=== PATIENT | male | born 1955 | race Caucasian/White ===

== ENCOUNTER 2020-10-22 14:53 | Outpatient (REF) | payer BC, SELFPAY | END 2020-10-22 14:54 | disposition home or self-care (01) | LOC: HO.LAB 14:53 | PROVIDERS: PCP Internal Medicine; Visit Provider Surgery | DX: L72.0 Epidermal cyst (principal); L72.3 Sebaceous cyst | CPT/HCPCS: 11403; 88304 ==

== ENCOUNTER → 2020-11-05 14:08 | Outpatient (BNVA) | payer BC, SELFPAY | PROVIDERS: PCP Internal Medicine; Visit Provider Surgery ==

== ENCOUNTER 2020-11-14 08:25 | Outpatient (REF) | payer BC, SELFPAY ==
[2020-11-14 10:03] LABS: MANUAL DIFF FLAG NO
[2020-11-14 10:30] LABS: Basophils Absolute Auto 0.1 X10*3/uL (0.0-0.2); Basophils Percent Auto 1.1 % (0-2); Eosinophils Absolute Auto 0.1 X10*3/uL (0.0-0.4); Eosinophils Percent Auto 1.8 % (0-4); Hematocrit 45.4 % (42-52); Hemoglobin 15.3 g/dl (14.0-18.0); Imm Gran Abs Auto 0.03 X10*3/uL (0.00-0.03); Imm Gran Pct Auto 0.5 % (0.0-0.4); Lymphocytes Absolute Auto 1.9 X10*3/uL (1.2-4.9); Lymphocytes Percent Auto 28.5 % (20-40); Mean Corpuscular HGB Conc 33.7 g/dl (31.0-36.0); Mean Corpuscular Hemoglobin 30.1 pg (27.0-33.0); Mean Corpuscular Volume 89.4 fL (80-98); Mean Platelet Volume 10.4 fL (9.4-12.4); Monocytes Absolute Auto 0.4 X10*3/uL (0.1-1.2); Monocytes Percent Auto 6.6 % (2-11); Neutrophils Percent Auto 61.5 % (45-73); Platelet Count 182 X10*3/uL (160-400); Red Blood Count 5.08 X10*6/uL (4.60-5.80); Red Cell Distribution Width 12.2 % (11.0-16.0); White Blood Count 6.5 X10*3/uL (4.8-10.8)
[2020-11-14 10:32] LABS: Alanine Aminotransferase 23 U/L (0-40); Albumin Level 4.3 g/dL (3.5-5.0); Alkaline Phosphatase 68 U/L (39-117); Anion Gap 13 (12-20); Aspartate Amino Transferase 19 U/L (5-37); Bilirubin Total 0.5 mg/dL (0.0-1.0); Blood Urea Nitrogen 18 mg/dL (9-16); Calcium 8.9 mg/dL (8.4-10.2); Carbon Dioxide 28 mmol/L (22-29); Chloride 103 mmol/L (96-108); Cholesterol 200 mg/dL; Estimated Glomerular Filt Rate > 60; Glucose Fasting 99 mg/dL (60-99); HDL Cholesterol 39 mg/dL; LDL Cholesterol Calculated 98 mg/dl; Potassium 4.4 mmol/L (3.3-5.1); Sodium 140 mmol/L (135-145); Total Protein 6.8 g/dL (6.5-8.0); Triglycerides 319 mg/dL
[2020-11-14 10:52] LABS: Prostate Specific Antigen Scr 1.35 ng/mL (<0.05-4.0)
== END 2020-11-14 08:26 | disposition home or self-care (01) ==
LOC: HO.10HDL 08:25
PROVIDERS: Visit Provider Internal Medicine
DX: Z00.00 Encounter for general adult medical examination without abnormal findings (principal); Z12.5 Encounter for screening for malignant neoplasm of prostate
CPT/HCPCS: 36415; 80053; 80061; 84153; 85025

== ENCOUNTER 2021-02-22 09:13 | Outpatient (REF) | payer BC, SELFPAY ==
[2021-02-22 11:00] LABS: Anion Gap 11 (12-20); Blood Urea Nitrogen 17 mg/dL (9-16); Carbon Dioxide 28 mmol/L (22-29); Chloride 105 mmol/L (96-108); Cholesterol 186 mg/dL; Estimated Glomerular Filt Rate > 60; Glucose Random 95 mg/dL (60-115); HDL Cholesterol 36 mg/dL; LDL Cholesterol Calculated 83 mg/dl; Potassium 4.3 mmol/L (3.3-5.1); Sodium 140 mmol/L (135-145); Triglycerides 336 mg/dL
== END 2021-02-22 09:14 | disposition home or self-care (01) ==
LOC: HO.LAB 09:13
PROVIDERS: PCP Internal Medicine; Visit Provider Internal Medicine
DX: I10 Essential (primary) hypertension (principal); E78.5 Hyperlipidemia, unspecified
CPT/HCPCS: 36415; 80048; 80061

== ENCOUNTER 2021-06-21 09:24 | Outpatient (REF) | payer BC, SELFPAY ==
[2021-06-21 10:34] LABS: Cholesterol 193 mg/dL; HDL Cholesterol 36 mg/dL; LDL Cholesterol Calculated 82 mg/dl; Triglycerides 378 mg/dL
== END 2021-06-21 09:25 | disposition home or self-care (01) ==
LOC: HO.10HDL 09:24
PROVIDERS: Visit Provider Internal Medicine
DX: I10 Essential (primary) hypertension (principal); E78.5 Hyperlipidemia, unspecified
CPT/HCPCS: 36415; 80061

== ENCOUNTER 2021-10-22 08:27 | Outpatient (REF) | payer BC, SELFPAY ==
[2021-10-22 10:37] LABS: Anion Gap 11 (12-20); Blood Urea Nitrogen 14 mg/dL (9-16); Calcium 9.1 mg/dL (8.4-10.2); Carbon Dioxide 26 mmol/L (22-29); Chloride 108 mmol/L (96-108); Cholesterol 195 mg/dL; Estimated Glomerular Filt Rate > 60; Glucose Fasting 100 mg/dL (60-99); HDL Cholesterol 33 mg/dL; LDL Cholesterol Calculated 109 mg/dl; Potassium 4.1 mmol/L (3.3-5.1); Sodium 141 mmol/L (135-145); Triglycerides 268 mg/dL
== END 2021-10-22 08:28 | disposition home or self-care (01) ==
LOC: HO.10HDL 08:27
PROVIDERS: Visit Provider Internal Medicine
DX: I10 Essential (primary) hypertension (principal); E78.5 Hyperlipidemia, unspecified
CPT/HCPCS: 36415; 80048; 80061

== ENCOUNTER 2022-02-05 08:46 | Outpatient (REF) | payer BC, SELFPAY ==
[2022-02-05 10:21] LABS: MANUAL DIFF FLAG NO
[2022-02-05 10:28] LABS: Basophils Absolute Auto 0.1 X10*3/uL (0.0-0.2); Eosinophils Absolute Auto 0.2 X10*3/uL (0.0-0.4); Eosinophils Percent Auto 2.1 % (0-4); Hematocrit 45.3 % (42.0-52.0); Hemoglobin 15.4 g/dl (14.0-18.0); Imm Gran Abs Auto 0.05 X10*3/uL (0.00-0.03); Imm Gran Pct Auto 0.7 % (0.0-0.4); Lymphocytes Absolute Auto 1.6 X10*3/uL (1.2-4.9); Lymphocytes Percent Auto 21.7 % (20-40); Mean Corpuscular Hemoglobin 30.6 pg (27.0-33.0); Mean Corpuscular Volume 90.1 fL (80.0-98.0); Mean Platelet Volume 10.8 fL (9.4-12.4); Monocytes Absolute Auto 0.4 X10*3/uL (0.1-1.2); Monocytes Percent Auto 4.8 % (2-11); Neutrophils Absolute Auto 5.1 x10*3/uL (2.0-8.3); Neutrophils Percent Auto 69.7 % (45-73); Platelet Count 194 X10*3/uL (160-400); Red Blood Count 5.03 X10*6/uL (4.60-5.80); Red Cell Distribution Width 12.4 % (11.0-16.0); White Blood Count 7.2 X10*3/uL (4.8-10.8)
[2022-02-05 10:41] LABS: Alanine Aminotransferase 17 U/L (0-40); Albumin Level 4.2 g/dL (3.5-5.0); Alkaline Phosphatase 74 U/L (39-117); Anion Gap 14 (12-20); Aspartate Amino Transferase 15 U/L (5-37); Bilirubin Total 0.4 mg/dL (0.0-1.0); Blood Urea Nitrogen 19 mg/dL (9-16); Calcium 9.2 mg/dL (8.4-10.2); Carbon Dioxide 24 mmol/L (22-29); Chloride 105 mmol/L (96-108); Cholesterol 203 mg/dL; Estimated Glomerular Filt Rate > 60; Glucose Fasting 107 mg/dL (60-99); HDL Cholesterol 38 mg/dL; LDL Cholesterol Calculated 115 mg/dl; Potassium 4.5 mmol/L (3.3-5.1); Sodium 138 mmol/L (135-145); Total Protein 6.9 g/dL (6.5-8.0); Triglycerides 252 mg/dL
[2022-02-05 11:04] LABS: Prostate Specific Antigen 0.89 ng/mL (<0.05-4.0)
== END 2022-02-05 08:47 | disposition home or self-care (01) ==
LOC: HO.10HDL 08:46
PROVIDERS: Visit Provider Internal Medicine
DX: Z00.00 Encounter for general adult medical examination without abnormal findings (principal); Z12.5 Encounter for screening for malignant neoplasm of prostate
CPT/HCPCS: 36415; 80053; 80061; 84153; 85025

== ENCOUNTER 2022-09-17 08:53 | Outpatient (REF) | payer BC, SELFPAY ==
[2022-09-17 12:08] LABS: Anion Gap 12 (12-20); Blood Urea Nitrogen 14 mg/dL (9-16); Calcium 9.1 mg/dL (8.4-10.2); Carbon Dioxide 29 mmol/L (22-29); Chloride 104 mmol/L (96-108); Cholesterol 213 mg/dL; Estimated Glomerular Filt Rate > 60; Glucose Random 95 mg/dL (60-115); HDL Cholesterol 41 mg/dL; LDL Cholesterol Calculated 111 mg/dl; Potassium 4.2 mmol/L (3.3-5.1); Sodium 141 mmol/L (135-145); Triglycerides 307 mg/dL
== END 2022-09-17 08:54 | disposition home or self-care (01) ==
LOC: HO.10HDL 08:53
PROVIDERS: Visit Provider Internal Medicine
DX: I10 Essential (primary) hypertension (principal); E78.5 Hyperlipidemia, unspecified
CPT/HCPCS: 36415; 80048; 80061

== ENCOUNTER 2022-11-11 09:07 | Day surgery (SDC) | payer MEDICARE, OTHER, SELFPAY ==
[2022-11-11 10:09] VITALS: BMI 33.6
[2022-11-11 10:18] VITALS: BP 167/113; PULSE 99; RESP 16; TEMP 36.7; O2SAT 95
[2022-11-11] MEDS: Lactated Ringers 1,000 ML 50 ML IVCONT (10:31)
[2022-11-11 10:42] VITALS: BP 140/89; PULSE 96
--- NOTE | 2022-11-11 10:54 | P.CONAN_ITS ---
HPI - Anesthesia Eval Consult details Narrative: 66 M for colonoscopy [facility] Active Problems Active Problems: All Active Problems (Updated 11/10/22 @ 12:48 by Елена Mancia RN) Epidermal cyst (Acute) Hypertension (Acute) Past Medical History Medical History (Updated 11/10/22 @ 12:48 by Елена Mancia RN) Elevated cholesterol Epidermal cyst Hypertension LUPE (obstructive sleep apnea) Functional capacity: independent ambulation Family History Family history of problems with anesthesia: No Surgical History Surgical History (Updated 11/10/22 @ 12:48 by Елена Mancia RN) H/O colonoscopy H/O eye surgery H/O left inguinal hernia repair H/O nasal septoplasty H/O wrist surgery History of elbow surgery History of right inguinal hernia repair History of uvulopalatopharyngoplasty History of Problems with Anesthesia: No Social History Social History Alcohol intake: current Patient Tobacco Use Status: Former Tobacco user Tobacco use type: Cigarette Use of substances other than those prescribed or required for medical reasons: Yes Are you DNR?: No Advance Directives: No Advance Directives Information Provided: Yes Nutrition Risks: No Nutritional Risk Meds Allergies Allergy/AdvReac Type Severity Reaction Status Date / Time No Known Allergies Allergy Verified 11/05/20 14:20 Active Medications: Current Medications Lactated Ringer's (Lr) 1,000 mls @ 50 mls/hr IVCONT .Q20H ZOE Last Admin: 11/11/22 10:31 Dose: 50 mls/hr Home Medications Medication Instructions Recorded Confirmed Last Taken Type doxazosin 4 mg tablet 1 tab PO BEDTIME 11/10/22 11/11/22 Unknown History losartan 100 mg tablet 1 tab PO DAILY 11/10/22 11/11/22 11/11/22 History Exam Exam Date and Time: November 11, 2022 1054 Height,Weight and Vital Signs: Height 6 ft 1 in Weight 115.666 kg Last Vital Signs Temp 98.0 F 11/11/22 10:18 Pulse 96 11/11/22 10:42 Resp 16 11/11/22 10:18 BP 140/89 H 11/11/22 10:42 Pulse Ox 95 11/11/22 10:18 O2 Del Method 11/11/22 10:18 Airway Mallampati Class: IV TM Dist: >3cm Neck ROM: Full Loose/Missing/Broken Teeth: Yes (Caps ) Heart: S1,S2 Lungs: b/l breath sounds Assessment and Plan Assessment Anesthesia Assessment: Anesthesia Plan Discussed and Chart Reviewed Final Anesthetic Review Family History of Problems with Anesthesia: No History of Problems with Anesthesia: No NPO: Yes ASA Class: II Final Preanesthetic Review: Meds/Allgs Chart Reviewed, Consent Obtained/Reviewed and Anes Risks/Benef Reviewed Patient Risk: Intermediate Procedure Risk: Intermediate Anesthetic Plan Anesthetic Plan: MAC: Disposition: Standard PACU
--- NOTE | 2022-11-11 11:01 | MHC.SHP ---
Pre-Procedural Eval Section A Date of Service: 11/11/22 The patient is an INPATIENT: No Changes since office visit: No Cold of Flu in the past 2 weeks, No New Medical Problems, No Changes in Medication and No Patient answered all questions The History & Physical has been completed within 30 days and I have reviewed it.: Yes Section B Chief Complaint: Personal history of colonic polyps,screening Allergies: Allergies Allergy/AdvReac Type Severity Reaction Status Date / Time No Known Allergies Allergy Verified 11/05/20 14:20 Plan I have reviewed the history and physical and performed a pertinent physical examination on my patient. No changes have occurred unless specified. Time Spent With Patient Time: Total time managing care of this patient today ____ minutes.
--- NOTE | 2022-11-11 11:27 | PC.NURSE ---
discharge instructions given by Yolis TIDWELL in discharge unit.
--- NOTE | 2022-11-11 11:49 | PM.OP ---
Brief Operative Note Date of Service: 11/11/22 Pre-op diagnosis: screening Post-op diagnosis: other Procedure: colonoscopy Surgeon: Barrett Shetty Anesthesia: MAC Was an Director Of Consumer Marketing used for this Procedure?: No Estimated blood loss (mL): 2 Pathology: other Condition: stable Disposition: PACU
[2022-11-11 11:58] VITALS: BP 146/93; PULSE 99; RESP 18; TEMP 36.5; O2SAT 98
[2022-11-11 12:13] VITALS: BP 134/92; PULSE 87; RESP 18; TEMP 36.5; O2SAT 98
--- NOTE | 2022-11-11 12:24 | OP_ITS ---
SURGEON: Barrett Shetty MD INDICATIONS: Colon cancer screening. PREOPERATIVE DIAGNOSIS: POSTOPERATIVE DIAGNOSIS: PROCEDURE PERFORMED: Colonoscopy to the terminal ileum with snare polypectomy. ESTIMATED BLOOD LOSS: COMPLICATIONS: ANESTHESIA: ASSISTANTS: SPECIMENS: MEDICATIONS: Monitored anesthesia care. DESCRIPTION OF PROCEDURE: The procedure was performed on 11/11/2022. A history and physical was performed. The risks and benefits of the procedure were explained to the patient. Informed consent was obtained. The patient was placed in the left lateral decubitus position. A digital rectal exam was performed and was found to be normal. The Olympus pediatric video colonoscope was introduced into the rectum and advanced to the cecum without difficulty. The cecum was identified by transillumination, palpation, and identification of ileocecal valve examination was performed. The scope was removed. He tolerated the procedure well and was returned to the recovery area in stable condition. FINDINGS: The terminal ileum was examined and appeared normal. Multiple colonic polyps were present and were removed with a snare. All measuring 10 mm or less. These were located in the cecum. Hepatic flexure x2. Transverse colon x2, splenic flexure x1, 50 cm and in the rectum. There was mild sigmoid diverticulosis. Retroflexed examination showed hypertrophic anal papillae and small internal hemorrhoids. IMPRESSION: Colon polyps. RECOMMENDATION: Follow up the biopsy results. MD PASTORA Dunham/ROJELIO / [id number] MTDD
== END 2022-11-11 12:35 | disposition home or self-care (01) ==
PROVIDERS: PCP Internal Medicine; Visit Provider Internal Medicine Gastroenterology
PROC: 0DJD8ZZ Inspection of Lower Intestinal Tract, Via Natural or Artificial Opening Endoscopic (ICD-10-PCS; CPT 45378; principal; 2022-11-11 11:00)
DX: Z12.11 Encounter for screening for malignant neoplasm of colon (principal); Z86.010 Personal history of colon polyps; D12.3 Benign neoplasm of transverse colon; D12.5 Benign neoplasm of sigmoid colon; K63.5 Polyp of colon; K62.1 Rectal polyp; K57.30 Diverticulosis of large intestine without perforation or abscess without bleeding; K64.8 Other hemorrhoids; K62.89 Other specified diseases of anus and rectum; I10 Essential (primary) hypertension; E78.00 Pure hypercholesterolemia, unspecified; G47.33 Obstructive sleep apnea (adult) (pediatric); Z79.899 Other long term (current) drug therapy; Z87.891 Personal history of nicotine dependence
CPT/HCPCS: 45385; 88305

== ENCOUNTER 2022-12-12 08:17 | Outpatient (REF) | payer MEDICARE, OTHER, SELFPAY ==
[2022-12-12 12:40] LABS: Cholesterol 198 mg/dL; HDL Cholesterol 36 mg/dL; LDL Cholesterol Calculated 107 mg/dl; Triglycerides 277 mg/dL
== END 2022-12-12 08:18 | disposition home or self-care (01) ==
LOC: HO.10HDL 08:17
PROVIDERS: Visit Provider Internal Medicine
DX: E78.5 Hyperlipidemia, unspecified (principal)
CPT/HCPCS: 36415; 80061

== ENCOUNTER → 2023-04-06 14:53 | Outpatient (REF) | payer MEDICARE, OTHER, SELFPAY | LOC: HO.CARD 14:53 | PROVIDERS: PCP Internal Medicine; Visit Provider Internal Medicine | DX: R00.2 Palpitations (principal) | CPT/HCPCS: 93242 ==

== ENCOUNTER → 2023-04-06 14:55 | Outpatient (BNV) | payer MEDICARE, OTHER, SELFPAY | PROVIDERS: PCP Internal Medicine; Visit Provider Internal Medicine | DX: I49.1 Atrial premature depolarization (principal) | CPT/HCPCS: 93244 ==

== ENCOUNTER 2023-07-03 08:07 | Outpatient (REF) | payer MEDICARE, OTHER, SELFPAY ==
[2023-07-03 10:49] LABS: MANUAL DIFF FLAG NO
[2023-07-03 11:05] LABS: Basophils Percent Auto 0.6 % (0-2); Eosinophils Absolute Auto 0.1 X10*3/uL (0.0-0.4); Eosinophils Percent Auto 1.6 % (0-4); Hematocrit 43.6 % (42.0-52.0); Hemoglobin 14.8 g/dl (14.0-18.0); Imm Gran Abs Auto 0.11 X10*3/uL (0.00-0.03); Imm Gran Pct Auto 1.6 % (0.0-0.4); Lymphocytes Absolute Auto 1.6 X10*3/uL (1.2-4.9); Lymphocytes Percent Auto 23.1 % (20-40); Mean Corpuscular HGB Conc 33.9 g/dl (31.0-36.0); Mean Corpuscular Volume 91.2 fL (80.0-98.0); Mean Platelet Volume 10.7 fL (9.4-12.4); Monocytes Absolute Auto 0.4 X10*3/uL (0.1-1.2); Monocytes Percent Auto 5.4 % (2-11); Neutrophils Absolute Auto 4.5 x10*3/uL (2.0-8.3); Neutrophils Percent Auto 67.7 % (45-73); Platelet Count 154 X10*3/uL (160-400); Red Blood Count 4.78 X10*6/uL (4.60-5.80); Red Cell Distribution Width 12.1 % (11.0-16.0); White Blood Count 6.7 X10*3/uL (4.8-10.8)
[2023-07-03 11:31] LABS: Alanine Aminotransferase 16 U/L (0-40); Albumin Level 4.2 g/dL (3.5-5.0); Alkaline Phosphatase 67 U/L (39-117); Anion Gap 17 (12-20); Aspartate Amino Transferase 17 U/L (5-37); Bilirubin Total 0.5 mg/dL (0.0-1.0); Blood Urea Nitrogen 14 mg/dL (9-16); Calcium 8.8 mg/dL (8.4-10.2); Carbon Dioxide 24 mmol/L (22-29); Chloride 105 mmol/L (96-108); Cholesterol 196 mg/dL (<200); Estimated Glomerular Filt Rate > 60; Glucose Fasting 101 mg/dL (60-99); HDL Cholesterol 37 mg/dL (>40); LDL Cholesterol Calculated 105 mg/dL (<100); Potassium 4.1 mmol/L (3.3-5.1); Sodium 142 mmol/L (135-145); Total Protein 6.9 g/dL (6.5-8.0); Triglycerides 273 mg/dL (<150)
[2023-07-03 11:39] LABS: Free T4 (Free Thyroxine) 0.79 ng/dL (0.71-1.85); Thyroid Stimulating Hormone 3.06 uIU/mL (0.32-4.0)
== END 2023-07-03 08:08 | disposition home or self-care (01) ==
LOC: HO.10HDL 08:07
PROVIDERS: Visit Provider Internal Medicine
DX: I10 Essential (primary) hypertension (principal); E78.5 Hyperlipidemia, unspecified; N40.0 Benign prostatic hyperplasia without lower urinary tract symptoms; R00.2 Palpitations
CPT/HCPCS: 36415; 80053; 80061; 84439; 84443; 85025

== ENCOUNTER 2024-01-22 08:00 | Outpatient (REF) | payer MEDICARE, OTHER, SELFPAY ==
[2024-01-22 14:23] LABS: Cholesterol 205 mg/dL (<200); HDL Cholesterol 40 mg/dL (>40); LDL Cholesterol Calculated 120 mg/dL (<100); Triglycerides 226 mg/dL (<150)
== END 2024-01-22 08:01 | disposition home or self-care (01) ==
LOC: HO.10HDL 08:00
PROVIDERS: Visit Provider Internal Medicine
DX: R79.89 Other specified abnormal findings of blood chemistry (principal)
CPT/HCPCS: 36415; 80061

== ENCOUNTER 2024-11-08 08:20 | Outpatient (REF) | payer MEDICARE, OTHER, SELFPAY ==
[2024-11-08 10:17] LABS: Appearance Urine Turbid; Color Urine Yellow; Glucose Urine UA Negative (Negative); Leukocyte Esterase Urine Negative (Negative); Nitrite Urine Negative (Negative); PH 5.5 (5.0-9.0); Urine Blood Negative (Negative); Urine Ketones Negative (Negative); Urine Protein Negative (Neg-Trace)
[2024-11-08 10:23] LABS: MANUAL DIFF FLAG NO
[2024-11-08 10:48] LABS: Basophils Percent Auto 0.9 % (0-2); Eosinophils Absolute Auto 0.1 X10*3/uL (0.0-0.4); Eosinophils Percent Auto 2.4 % (0-4); Hematocrit 41.1 % (42.0-52.0); Hemoglobin 14.1 g/dl (14.0-18.0); Imm Gran Abs Auto 0.02 X10*3/uL (0.00-0.03); Imm Gran Pct Auto 0.4 % (0.0-0.4); Lymphocytes Absolute Auto 1.3 X10*3/uL (1.2-4.9); Lymphocytes Percent Auto 27.9 % (20-40); Mean Corpuscular HGB Conc 34.3 g/dl (31.0-36.0); Mean Corpuscular Hemoglobin 30.9 pg (27.0-33.0); Mean Corpuscular Volume 89.9 fL (80.0-98.0); Mean Platelet Volume 10.6 fL (9.4-12.4); Monocytes Absolute Auto 0.3 X10*3/uL (0.1-1.2); Monocytes Percent Auto 6.1 % (2-11); Neutrophils Absolute Auto 2.9 x10*3/uL (2.0-8.3); Neutrophils Percent Auto 62.3 % (45-73); Platelet Count 169 X10*3/uL (160-400); Red Blood Count 4.57 X10*6/uL (4.60-5.80); Red Cell Distribution Width 12.2 % (11.0-16.0); White Blood Count 4.6 X10*3/uL (4.8-10.8)
[2024-11-08 11:09] LABS: Alanine Aminotransferase 15 U/L (0-40); Albumin Level 4.2 g/dL (3.5-5.0); Alkaline Phosphatase 74 U/L (39-117); Anion Gap 15 (12-20); Aspartate Amino Transferase 18 U/L (5-37); Bilirubin Total 0.5 mg/dL (0.0-1.0); Blood Urea Nitrogen 14 mg/dL (9-16); Calcium 9.3 mg/dL (8.4-10.2); Carbon Dioxide 27 mmol/L (22-29); Chloride 105 mmol/L (96-108); Cholesterol 193 mg/dL (<200); Estimated Glomerular Filt Rate > 60; Glucose Fasting 96 mg/dL (60-99); HDL Cholesterol 40 mg/dL (>40); LDL Cholesterol Calculated 124 mg/dL (<100); Potassium 4.3 mmol/L (3.3-5.1); Sodium 143 mmol/L (135-145); Total Protein 7.1 g/dL (6.5-8.0); Triglycerides 146 mg/dL (<150)
[2024-11-08 11:19] LABS: Prostate Specific Antigen Scr 2.07 ng/mL (<0.05-4.0)
== END 2024-11-08 08:21 | disposition home or self-care (01) ==
LOC: HO.10HDL 08:20
PROVIDERS: Visit Provider Internal Medicine
DX: Z12.5 Encounter for screening for malignant neoplasm of prostate (principal); I10 Essential (primary) hypertension; E78.5 Hyperlipidemia, unspecified; R35.1 Nocturia
CPT/HCPCS: 36415; 80053; 80061; 81003; 84153; 85025

== ENCOUNTER 2025-03-22 08:59 | Outpatient (AMB) | payer MEDICARE, OTHER, SELFPAY ==
--- NOTE | 2025-03-22 08:37 | MHC.PC.OV ---
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: No Accompanied by: Self / Same As Patient Allergies No Known Allergies Allergy (Verified 03/22/25 09:28) Medication List - Last Reconciled 03/22/25 by Nemesio Awad MD atorvastatin 20 mg PO BEDTIME doxazosin 4 mg PO BEDTIME 90 days losartan 100 mg PO DAILY Tobacco use date assessed: 03/22/25 Fall risk assessment: No Falls in past year Last assessed Fall Risk: 03/22/25 Dental Screening Dental Screen Date: 03/22/25 Did you have a dental visit in the last 12 months?: Yes Did you have a dental problem in the last 6 months where you did not have access to dental care?: No PFSH Medical History (Updated 03/22/25 @ 09:24 by Nemesio Aawd MD) LUPE (obstructive sleep apnea) Elevated cholesterol Epidermal cyst Hypertension Surgical History H/O wrist surgery H/O nasal septoplasty History of uvulopalatopharyngoplasty H/O eye surgery H/O left inguinal hernia repair H/O colonoscopy (~11/11/22) History of elbow surgery History of right inguinal hernia repair Family History (Updated 03/22/25 @ 09:07 by Mile Rodríguez MA) Mother No problems noted. Father No problems noted. Social History Housing: House Alcohol intake: current Patient Tobacco Use Status: Former Tobacco user Tobacco use type: Cigarette e-Cigarette/Vaping Use: Former Use service: No Current occupational status: retired Cognitive needs: No Hearing needs: No Vision needs: Yes (rx glasses) Questionnaire PHQ-9 Over the last 2 weeks, how often have you been bothered by any of the following problems? 1. Little interest or pleasure in doing things: not at all 2. Feeling down, depressed, or hopeless: not at all 3. Trouble falling or staying asleep, or sleeping too much: not at all 4. Feeling tired or having little energy: not at all 5. Poor appetite or overeating: not at all 6. Feeling bad about yourself - or that you are a failure or have let yourself or your family down: not at all 7. Trouble concentrating on things, such as reading the newspaper or watching television: not at all 8. Moving or speaking so slowly that other people could have noticed. Or the opposite - being so fidgety or restless that you have been moving around a lot more than usual: not at all 9. Thoughts that you would be better off or of hurting yourself in some way: not at all Total score: 0 Depression Screening Interpretation: Negative Depression Screening Done: Yes Source: Developed by Drs. Luke Martini, Galilea Coffey, David Sun and colleagues, with an educational osmani from [employer]. Thrive Questionnaire Date Thrive assessed: 03/22/25 I am a: Patient Within the past 12 months, did the food you bought not last and you didn't have the money to get more?: Never true Within the past 12 months, did you worry whether your food would run out before you got money to buy more?: Never true Do you have trouble paying for medicines?: No Do you have trouble getting transportation to medical appointments?: No Do you have trouble paying your heating and electricity bill?: No Do you have trouble taking care of your child, family member or friend?: No Do you have trouble with day-to-day activities such as bathing, preparing meals, shopping, managing finances, etc.?: No Are you currently unemployed and looking for a job?: No Are you interested in more education?: No Currently or been in a relationship where the following occur: No concerns reported THRIVE Score: 0 AUDIT C Alcohol Use Questionnaire (AUDIT-C) 1. How often do you have a drink containing alcohol?: Never 3. How often do you have six or more drinks on one occasion?: Never Total Score: 0 ANN-7 AMB Questionnaire ANN-7 Date ANN - 7 assessed: 03/22/25 Feeling nervous, anxious, or on edge: 0 = Not at all Not being able to stop or control worryin = Not at all Worrying too much about different things: 0 = Not at all Trouble relaxin = Not at all Being so restless that it is hard to sit still: 0 = Not at all Becoming easily annoyed or irritable: 0 = Not at all Feeling afraid as if something awful might happen: 0 = Not at all Total ANN-7 score (0-4 normal; 5-9 mild; 10-14 moderate; 15-21 severe): 0 Source: Developed by Drs. Lkue Martini, Galilea Coffey, David Sun and colleagues, with an educational osmani from [employer]. Physical exam (Primary Care) Vital Signs: Last Vital Signs Temp 98.5 F 03/22/25 09:03 Pulse 75 03/22/25 09:03 BP 132/80 03/22/25 09:03 Pulse Ox 98 03/22/25 09:03 Oxygen Delivery Method Room Air 03/22/25 09:03 BMI result Body Mass Index 30.5 Tobacco/Smoking Status: Tobacco use Status Tobacco use date assessed 03/22/25 03/22/25 08:40 Patient Tobacco Use Status Former Tobacco user 03/22/25 08:40 Tobacco use type Cigarette 03/22/25 08:40 e-Cigarette/Vaping Use Former Use 03/22/25 08:40 PHQ-9: PHQ-9 Score PHQ-9: Total score 0 03/22/25 08:44 Depression Screening Interpretation: Negative Thrive Assessment: Date of Thrive Assessment Date Thrive assessed 03/22/25 03/22/25 08:44 Currently or been in a relationship where the following occur: No concerns reported Advance Care Planning discussion: Exists, not on file Date of discussion: 03/22/25 Forms completed: Health Care Proxy and MOLST Time spent: 1-15 minutes, on File Actual minutes spent: 5 Coding Level of Care Code New Pt Level 4 (87672) Complex EM visit Add On G2211 Diagnoses Hypertension I10 Elevated cholesterol E78.00 Additional Codes Vital Signs *Quality* - Advance Care Planning discussion: Exists, not on file ([id number]) Vital Signs *Quality* - Time spent: 1-15 minutes, on File ([id number]) Assessment & Plan Assessment & Plan (1) Hypertension: Code(s): I10 - Essential (primary) hypertension Category: Medical Plan: BP is in range. Continue meds at same dosage. (2) Elevated cholesterol: Code(s): E78.00 - Pure hypercholesterolemia, unspecified Category: Medical Plan: Atorvostatin added to the regimen. Plan History of Present Illness - The patient is a 69-year-old male presenting with hyperlipidemia. - Routine blood work in November revealed slightly elevated cholesterol levels. - Acknowledges dietary habit of consuming high-fat foods like cheese. - Prescription of atorvastatin discussed to manage cholesterol levels. - Importance of daily medication adherence and low-fat diet emphasized to reduce cardiovascular risks. Social History - Retired, previously worked at a [employer] in [place], involving significant physical activity. - Lives alone with an Hungarian bulldog, engages in daily walks. - Independently manages activities of daily living, including driving and shopping. Review of Systems - Cardiovascular: Denies chest pain, palpitations. - Gastrointestinal: Denies abdominal pain, nausea. - General: Denies new concerns; reports good general health. Physical Exam General: Cooperative and healthy appearing Nutritional Appearance: Well nourished Orientation/consciousness: Patient oriented x3 Limitations: No limitations Head: Normal to inspection General: Appearance normal, both eyes and all related structures Neck: Normal visual inspection Chest: Normal palpation of entire chest wall Respiratory: N ormal respiratory effort Neurology: Patient oriented x3, able to perform activities of daily living independently. Results - Labs: November blood work showed slightly elevated cholesterol levels. Plan 1. Hyperlipidemia - Start atorvastatin and follow a low-fat diet. - Regular monitoring of liver function and cholesterol every six months. 2. Hypertension - Continue current antihypertensive regimen with losartan. Discussion Notes During our consultation, we discussed the patient's hyperlipidemia revealed during the recent blood work and the recommendation to start atorvastatin. I explained the medication's role in reducing cholesterol and mitigating the risk of cardiovascular events. The patient agreed to initiate atorvastatin and acknowledged the need to take it daily for optimal benefits. We also reviewed the importance of a low-fat diet in conjunction with medication to enhance cholesterol management. Regular follow-up every six months for liver function and cholesterol monitoring was advised. We concluded with a brief review of his hypertension management with losartan, ensuring compliance and ongoing monitoring. Patient Instructions - Begin taking atorvastatin daily as prescribed. - Follow a low-fat diet to help manage cholesterol. - Continue taking losartan for blood pressure control. - Return for follow-up in six months for liver and cholesterol blood tests. - Maintain regular daily walks with the dog. - Contact the office if you experience any new symptoms or have concerns. Orders: Orders Thyroid Stimulating Hormone Today E78.00 - Pure hypercholesterolemia, unspecified, I10 - Essential (primary) hypertension UA and rflx microscopic Today E78.00 - Pure hypercholesterolemia, unspecified, I10 - Essential (primary) hypertension Complete Blood Count no Diff Today E78.00 - Pure hypercholesterolemia, unspecified, I10 - Essential (primary) hypertension Basic Metabolic Panel Today E78.00 - Pure hypercholesterolemia, unspecified, I10 - Essential (primary) hypertension Lipid Panel Today E78.00 - Pure hypercholesterolemia, unspecified, I10 - Essential (primary) hypertension Liver Panel Today E78.00 - Pure hypercholesterolemia, unspecified, I10 - Essential (primary) hypertension Medications: New atorvastatin 20 mg PO BEDTIME 90 tabs 1RF losartan 100 mg PO DAILY 90 tabs 1RF Changed From doxazosin 1 tab PO BEDTIME To doxazosin 4 mg PO BEDTIME 90 tabs 1RF 90 days
[2025-03-22 09:03] VITALS: BP 132/80; PULSE 75; TEMP 36.9; O2SAT 98; BMI 30.5
--- OUTSIDE RECORDS SUMMARY | 2025-03-22 09:37 | XMS_ITS | Patient Health Record ---
Author Organization [facility] Address [address] [place] [address] Care Team Providers Care Flat Finisher Name Role Phone Jimmy Terry MD Primary Care Provider Barrett Perry Jr Unavailable Allergies No Known Allergies Reason For Referral No Information Medications Medication SIG (Take, Route, Frequency, Duration) Notes Start Date End Date Status Losartan Potassium 100 MG TAKE ONE TABLE T BY MOUTH EVERY DAY Oral for 30 Active MiraLax (colon prep) 17 GM/SCOOP mixed with Gatorade or Crystal Light Orally begin at 5:00 p.m. the day before the procedure for 1 day 10/24/2022 Active Doxazosin Mesylate 4 MG TAKE ONE TABLET BY MOUTH EVERY NIGHT Oral for 90 Active Immunizations Vaccine Route Administration Date Status Comme nts Influenza Unknown 06/05/2022 Administered Influenza Unknown 01/07/2019 Refused Social History Alcohol Screen Question Answer Notes Did you have a drink contain ing alcohol in the past year? Yes How often did you have a dri nk containing alcohol in the past year? 2 to 4 times a month (2 points) How many drinks did you have on a typical day when you were drinking in the past year? 1 or 2 drinks (0 point) Points 2 Interpretation Negative Problems Problem Type SNOMED Code ICD Code Onset Dates Problem Status W/U Status Risk Notes Problem 636656527 Colon cancer screening (Z12.11) Active confirmed Problem 643371817 Personal history of colonic polyps (Z86.010) Active confirmed Problem 253734653 Encounter for other preprocedural examination (Z01.818) Active confirmed Problem 85572321 Hypertension, unspecified type (I10) Active confirmed Plan Of Treatment Future Test Test Name Order Date COLONOSCOPY 10/26/2014 COLONOSCOPY 01/07/2019 COLONOSCOPY 10/24/2022 Insurance Providers Payer Name Payer Address Payer Phone Subscriber Number Group Number Insured Name Patient Relationship to Insured Coverage Start Date Coverage End Date [employer] OF [employer] [address] [place] [address] [id number] AYAH SNIDER Self - patient is the insured [facility] [address] [place] [phone] [id number] AYAH SNIEDR Self - patient is the insured Medical (General) History Medical History History ICD Code Colon polyps, colonoscopy 08/23, tubular adenomas x3, three-year followup hypertension Elevated cholesterol Obstructive sleep apnea Surgical History Surgery Date(Month/Year) Left inguinal herniorrhaphy eye surgery Uvulopharyngopalatoplasty and septoplast y wrist surgery-right elbow surgery-left
== END 2025-03-22 09:24 | disposition home or self-care (01) ==
LOC: HO.HMCHD 08:59
PROVIDERS: PCP Internal Medicine; Visit Provider Internal Medicine
DX: I10 Essential (primary) hypertension (principal); E78.00 Pure hypercholesterolemia, unspecified; Z00.00 Encounter for general adult medical examination without abnormal findings

== ENCOUNTER → 2025-03-22 08:59 | Outpatient (BNVA) | payer MEDICARE, OTHER, SELFPAY | PROVIDERS: PCP Internal Medicine; Visit Provider Internal Medicine | DX: I10 Essential (primary) hypertension (principal); E78.00 Pure hypercholesterolemia, unspecified; Z87.891 Personal history of nicotine dependence | CPT/HCPCS: 99202 ==

== ENCOUNTER 2025-09-20 08:23 | Outpatient (AMB) | payer MEDICARE, OTHER, SELFPAY ==
--- NOTE | 2025-09-20 08:09 | A.OFFPC_ITS ---
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 He is currently treated with losartan 100 mg for blood pressure, atorvastatin 20 mg for cholesterol, and doxazosin 4 mg for his prostate. His blood pressure is well-controlled, and recent vitals were stable. Blood work from November of this year showed an elevated LDL cholesterol of 124. He reports nocturia, getting up two or three times a night to urinate, but states it is not bothersome. The patient acknowledges a habit of drinking fluids, such as iced tea, water, or seltzer, right up until bedtime. He has a normal urinary stream. The patient also presents with two new concerns. The first is tenderness in his groin, which he attributes to his 45-pound bulldog that pulls on the leash during walks and jumps on his lap. The second concern is a single episode of dizziness a few weeks ago. He reports that after sitting for a couple of hours and not having eaten much that day, he got up, felt very dizzy, and had to lie down on the floor for about two minutes before he felt fine again. He did not lose consciousness. Medical History: - Hypertension - Hyperlipidemia - Benign prostatic hyperplasia Medications: - Atorvastatin 20 mg for hyperlipidemia - Doxazosin 4 mg for benign prostatic hy perplasia - Losartan 100 mg for hypertension Diagnostic Results: - Labs (November): LDL cholesterol was 1 24. - Vitals: Blood pressure 132/80 mmHg. Social History - Employment: The patient is retired. - Diet/Habits: Reports drinking fluids s uch as iced tea, water, or seltzer up until bedtime. - Substance Use: Denies alcohol use befo re bed. - Activity Level: Walks his dog daily. Health Maintenance - The patient will follow up in 3 months for a physical exam. - Discussion of cancer screenings is ron nned for the next visit. - Comprehensive lab work ordered for one week prior to the next appointment, including: complete blood count, electrolytes, hepatitis screen, HIV, choles terol panel, urinalysis, syphilis screen, thyroid levels, and vitamin D levels. - counseled on lifestyle modifications, including reducing fluid intake before bed, performing regular stretching, and rising slowly from a seated position. Patient was informed and verbally consented to the use of an ambient scribe for clinic note documentation during this visit. Vital signs reviewed. Comprehensive history, review of systems, and physical exam completed. Medications, allergies, and problem list reviewed and updated. Counseling provided on nutrition, regular exercise, sleep hygiene, and moderat ion of alcohol use. Discussed age-appropriate screenings (mammogram, colonoscopy, Pap, bone density) and immunizations (flu, COVID, shingles, Tdap). Screened for depression, fall risk, and home safety; no current concerns. Discussed stress management, dental and vision care, and importance of ongoing preventive follow-up. Routine labs ordered for metabolic and lipid screening. Patient educated on healthy lifestyle and agrees with the plan. [facility] Medical History (Updated 09/20/25 @ 08:45 by Rene Kulkarni MD) Pre-syncope Groin strain BPH loc w urin obs/LUTS LUPE (obstructive sleep apnea) Elevated cholesterol Epidermal cyst Hypertension Surgical History H/O wrist surgery H/O nasal septoplasty History of uvulopalatopharyngoplasty H/O eye surgery H/O left inguinal hernia repair H/O colonoscopy (~11/11/22) History of elbow surgery History of right inguinal hernia repair Family History (Updated 03/22/25 @ 09:07 by Mile Rodríguez MA) Mother No problems noted. Father No problems noted. Social History Housing: House Alcohol intake: current Patient Tobacco Use Status: Former Tobacco user Tobacco use type: Cigarette e-Cigarette/Vaping Use: Former Use service: No Current occupational status: retired Cognitive needs: No Hearing needs: No Vision needs: Yes (rx glasses) Questionnaire Thrive Questionnaire Date Thrive assessed: 03/22/25 ANN-7 AMB Questionnaire ANN-7 Date ANN - 7 assessed: 03/22/25 Source: Developed by Drs. Luke Martini, Galilea Coffey, David Sun and colleagues, with an educational osmani from [employer]. Review of Systems Narrative Review of Systems - Constitutional: Reports feeling very well. - Neurological: Reports a single episode of presyncope upon standing a few weeks ago. - Musculoskeletal: Reports groin tenderness. - Genitourinary: Reports nocturia, waking 2-3 times per night, which is not bothersome. - Gastrointestinal: Denies nausea or vomiting and reports normal bowel movements. - Cardiovascular: Denies chest pain. - Respiratory: Denies shortness of breath. All systems reviewed & are unremarkable except as reviewed in HPI and above Physical exam (Primary Care) Vital Signs: Last Vital Signs Temp 97.4 F 09/20/25 08:29 Pulse 74 09/20/25 08:29 Resp 14 09/20/25 08:29 BP 132/80 09/20/25 08:29 Pulse Ox 98 09/20/25 08:29 Oxygen Delivery Method Room Air 09/20/25 08:29 Care Plan Goal for BP management: Within Goal BMI result Body Mass Index 30.1 Tobacco/Smoking Status: Tobacco use Status Tobacco use date assessed 03/22/25 09/20/25 08:09 Patient Tobacco Use Status Former Tobacco user 09/20/25 08:09 Tobacco use type Cigarette 09/20/25 08:09 e-Cigarette/Vaping Use Former Use 09/20/25 08:09 Thrive Assessment: Date of Thrive Assessment Date Thrive assessed 03/22/25 09/20/25 08:09 Narrative Physical Exam General: +Alert and oriented, Well nourished, No acute distress. Eye: Pupils are equal, round and reactive to light, Intact accommodation, Extraocular movements are intact, Normal conjunctiva, Vision unchanged. HENT: Normocephalic, Atraumatic, Tympanic membranes are clear, Normal hearing, Oral mucosa is moist, No pharyngeal erythema, Ear canals patent. Respiratory: Lungs CTA bilaterally, No wheeze, Respirations are non-labored. Cardiovascular: Regular rate, Regular rhythm, S1 auscultated, S2 auscultated, No murmur, Good pulses equal in all extremities, Normal peripheral perfusion, No edema. Gastrointestinal: Soft, Non-tender, Non-distended, Normal bowel sounds, No organomegaly. Musculoskeletal: Normal range of motion, Normal strength, Tenderness in groin, No swelling, No deformity, Normal gait. Integumentary: Warm, Dry, Robinson, Intact. Neurologic: Alert, Oriented, Normal sensory, Normal motor function, No focal defects, Cranial Nerves II-XII are grossly intact, Normal deep tendon reflexes. Psychiatric: Cooperative, Appropriate mood & affect, Normal judgment. Coding Level of Care Code Est Pt Level 4 (30887) Add On Problem Visit Only Diagnoses Primary hypertension I10 Hypertension type: primary hypertension Elevated cholesterol E78.00 BPH loc w urin obs/LUTS N40.1 Groin strain, unspecified laterality, initial encounter S76.219A Encounter type: initial encounter Laterality: unspecified laterality Pre-syncope R55 Assessment & Plan Assessment & Plan (1) Hypertension: Comment: - The patient's blood pressure is well-controlled at 132/80 on losartan 100 mg. No changes will be made to the current regimen. Code(s): I10 - Essential (primary) hypertension Category: Medical Qualifiers: Hypertension type: primary hypertension Qualified Code(s): I10 - Essential (primary) hypertension (2) Elevated cholesterol: Comment: - He is currently on atorvastatin 20 mg. His last LDL cholesterol level was elevated at 124. - The plan is to continue the current medication and recheck labs in 3 months. Code(s): E78.00 - Pure hypercholesterolemia, unspecified Category: Medical (3) BPH loc w urin obs/LUTS: Comment: - The patient experiences nocturia but is not bothered by it. - It is likely exacerbated by his habit of drinking fluids before bed. - He will continue doxazosin 4 mg, and he has been counseled on behavioral changes, including limiting fluid intake 4-5 hours before sleep and ensuring complete bladder emptying. Code(s): N40.1 - Benign prostatic hyperplasia with lower urinary tract symptoms Category: Medical (4) Groin strain: Comment: - The tenderness is likely musculoskeletal, related to his dog. - He was advised to perform regular stretching, especially before strenuous activity, and can use Tylenol or heat packs for soreness. Code(s): S76.219A - Strain of adductor muscle, fascia and tendon of unspecified thigh, initial encounter Category: Medical Qualifiers: Encounter type: initial encounter Laterality: unspecified laterality Qualified Code(s): S76.219A - Strain of adductor muscle, fascia and tendon of unspecified thigh, initial encounter (5) Pre-syncope: Comment: - His single episode of dizziness is consistent with orthostatic hypotension. - He was educated to rise gradually from a seated or lying position to prevent recurrence. Code(s): R55 - Syncope and collapse Category: Medical Plan: Health Maintenance: - The patient will follow up in 3 months for a physical exam. - Discussion of cancer screenings is planned for the next visit. - Comprehensive lab work ordered for one week prior to the next appointment, including: complete blood count, electrolytes, hepatitis screen, HIV, cholesterol panel, urinalysis, syphilis screen, thyroid levels, and vitamin D levels. - counseled on lifestyle modifications, including reducing fluid intake before bed, performing regular stretching, and rising slowly from a seated position. Patient was informed and verbally consented to the use of an ambient scribe for clinic note documentation during this visit. Plan I discussed with the patient that his chronic conditions, including hypertension, hyperlipidemia, and BPH, are stable on his current medications. We reviewed his two new concerns. I explained that his episode of dizziness was likely orthostatic hypotension from getting up too quickly and advised him to make gradual postural changes. I also explained that his groin tenderness is likely a musculoskeletal strain and recommended stretching exercises. Regarding his nocturia, I counseled him on behavioral changes, such as limiting fluid intake before bed. We agreed on a plan to have him return in 3 months for a full physical exam and to review comprehensive lab work, which he will complete one week prior to that visit. I also informed him that routine digital rectal exams are not performed unless medically necessary. Orders: Orders Lipid Panel 3 Months Z00.00 - Encounter for general adult medical examination without abnormal findings Microalbumin, Random (w Creat) 3 Months Z00.00 - Encounter for general adult medical examination without abnormal findings TSH reflex Free T4 3 Months Z00.00 - Encounter for general adult medical examination without abnormal findings Complete Blood Count Auto Diff 3 Months Z00.00 - Encounter for general adult medical examination without abnormal findings Comprehensive Met. Panel 3 Months Z00.00 - Encounter for general adult medical examination without abnormal findings Hemoglobin A1c 3 Months Z00.00 - Encounter for general adult medical examination without abnormal findings Hepatitis A,B,C Profile 3 Months Z00.00 - Encounter for general adult medical examination without abnormal findings HIV Ab/Ag 3 Months Z00.00 - Encounter for general adult medical examination without abnormal findings Syphilis Screen 3 Months Z00.00 - Encounter for general adult medical examination without abnormal findings Vitamin D 25-OH Total 3 Months Z00.00 - Encounter for general adult medical examination without abnormal findings Patient Instructions: - Continue taking your current medications as prescribed: atorvastatin 20 mg, doxazosin 4 mg, and losartan 100 mg. - To help with waking up at night to urinate, try to limit drinking fluids for 4 to 5 hours before going to bed. - For the groin tenderness, make sure to stretch your legs before you do anyt matt strenuous, like walking your dog. - To prevent feeling dizzy, be sure to get up slowly after you have been sitting or lying down for a long time. - Please go for your blood work about one week before your next appointment. 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
[2025-09-20 08:29] VITALS: BP 132/80; PULSE 74; RESP 14; TEMP 36.3; O2SAT 98; BMI 30.1
--- OUTSIDE RECORDS SUMMARY | 2025-09-20 08:34 | XMS_ITS | Patient Health Record ---
Author Organization [facility] Address [address] [place] [address] Care Team Providers Care Staff Trainer Name Role Phone Mara (RETIRED) Jimmy DELACRUZ Primary Care Provide r Unavailable Barrett Shetty Jr Unavailable Allergies No Known Allergies Reason For Referral No Information Medications Medication SIG (Take, Route, Frequency, Duration) Notes Start Date End Date Status Losartan Potassium 100 MG Tablet TAKE ONE TABLET BY MOUTH EVERY DAY Oral; Duration: 30 Active MiraLax (colon prep) 17 GM/SCOOP Powder mixed with Gatorade or Crystal Light Orally begin at 5:00 p.m. the day before the procedure; Duration: 1 day 10/24/2022 Active Doxazosin Mesylate 4 MG Tablet TAKE ONE TABLET BY MOUTH EVERY NIGHT Oral; Duration: 90 Active Immunizations Vaccine Route Administration Date Status Comme nts Influenza Unknown 01/07/2019 Refused Influenza Unknown 06/05/2022 Administered Social History Social History Drugs/Alcohol: Social Info Question Answer Notes Alcohol Screen Did you have a drink containing alcohol in the past year? Yes How often did you have a drink containing alcohol in the past year? 2 to 4 times a month (2 points) How many drinks did you have on a typical day when you were drinking in the past year? 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 Problems Problem Type SNOMED Code ICD Code Onset Dates Problem Status W/U Status Risk Notes Problem Colon cancer screening (192961699) Colon cancer screening (Z12.11) Active confirmed Problem History of polyp of colon (situation) (325738728) Personal history of colonic polyps (Z86.010) Active confirmed Problem Pre-procedure evaluation check (709894301) Encounter for other preprocedural examination (Z01.818) Active confirmed Problem Essential hypertension (79736051) Hypertension, unspecified type (I10) Active confirmed Plan Of Treatment Future Test Test Name Order Date COLONOSCOPY 10/26/2014 COLONOSCOPY 01/07/2019 COLONOSCOPY 10/24/2022 Insurance Providers Payer Name Payer Address Payer Phone Subscriber Number Group Number Insured Name Patient Relationship to Insured Coverage Start Date Coverage End Date MEDICARE OF [place] [address] [place] [address] [id number] AYAH SNIDER Self - patient is the insured [facility] [address] [place] [phone] [id number] [id number] SNIDER Self - patient is the insured Medical (General) History Medical History History ICD Code Colon polyps, colonoscopy 08/23, tubular adenomas x3, three-year followup hypertension Elevated cholesterol Obstructive sleep apnea Surgical History Surgery Date(Month/Year) Left inguinal herniorrhaphy eye surgery Uvulopharyngopalatoplasty and septoplast y wrist surgery-right elbow surgery-left
== END 2025-09-20 08:46 | disposition home or self-care (01) ==
LOC: HO.HMCHD 08:23
PROVIDERS: PCP Student in an Organized Health Care Education/Training Program; Visit Provider Student in an Organized Health Care Education/Training Program
DX: I10 Essential (primary) hypertension (principal); E78.00 Pure hypercholesterolemia, unspecified; N40.1 Benign prostatic hyperplasia with lower urinary tract symptoms; S76.219A Strain of adductor muscle, fascia and tendon of unspecified thigh, initial encounter; R55 Syncope and collapse

== ENCOUNTER → 2025-09-20 08:23 | Outpatient (BNVA) | payer MEDICARE, OTHER, SELFPAY | PROVIDERS: PCP Student in an Organized Health Care Education/Training Program; Visit Provider Student in an Organized Health Care Education/Training Program | DX: I10 Essential (primary) hypertension (principal); E78.00 Pure hypercholesterolemia, unspecified; N40.1 Benign prostatic hyperplasia with lower urinary tract symptoms; S76.219A Strain of adductor muscle, fascia and tendon of unspecified thigh, initial encounter; R55 Syncope and collapse; Z87.891 Personal history of nicotine dependence | CPT/HCPCS: 99212 ==